=== PATIENT | male | born 1980 | race Caucasian/White ===

== ENCOUNTER 2017-09-05 06:28 | Inpatient (IN) | payer OTHER ==
[2017-09-05] MEDS ORDERED: hydrOXYzine 50 MG TAB PO (14:15)
[2017-09-05] MEDS ORDERED: IBUPROFEN 400 MG TAB PO (14:15)
[2017-09-05] MEDS ORDERED: DOXEPIN 25 MG CAP PO (14:15)
== END 2017-09-06 10:50 | disposition home or self-care (01) | DRG 882 ==
LOC: M ED 06:28 → M ED INP 09:08 → M PSY 11:20
DX: F43.23 Adjustment disorder with mixed anxiety and depressed mood (principal); R45.851 Suicidal ideations; F41.1 Generalized anxiety disorder; F43.10 Post-traumatic stress disorder, unspecified; Z91.011 Allergy to milk products; F17.200 Nicotine dependence, unspecified, uncomplicated

== ENCOUNTER → 2020-06-10 | Outpatient (CLI) | payer OTHER ==
[~2020-06-10] MED LIST: DOXE25CA PO; HYDR1TAB33 PO; ZYBA150T PO
--- NOTE | 2020-06-10 11:18 | REP ---
INDICATION: PAIN. COMPARISON: None. TECHNIQUE: Four views of the right hand are obtained. FINDINGS: Four views of the right hand demonstrate a nondisplaced fracture at the base of the 4th metacarpal. This is seen on oblique projection image. No other fracture is seen. . No opaque foreign body noted. IMPRESSION: Nondisplaced fracture of the proximal end of the 4th metacarpal.. <Electronically signed by Isaias Chase > 06/10/20 1983
== END ==
LOC: M WUC 08:55
PROVIDERS: ATTEND Physician Assistant
DX: S62.344A Nondisplaced fracture of base of fourth metacarpal bone, right hand, initial encounter for closed fracture (principal); X58.XXXA Exposure to other specified factors, initial encounter; Y92.89 Other specified places as the place of occurrence of the external cause; Y93.89 Activity, other specified; Y99.8 Other external cause status